=== PATIENT | female | born 1985 | race Caucasian/White ===

== ENCOUNTER → 2019-08-16 | Outpatient (CLI) | payer BC ==
[~2019-08-16] MED LIST: ASPI1TAB31 PO; CITA20TA9 PO; ETHI1TAB5 PO; GALC120S INJ; LEVO50TA5 PO; LORA-439 PO; PNV1TABL43 PO
[2019-08-16 13:47] LABS: BASOPHILS # (AUTO) 0.03 x10^3/uL (0-0.1); BASOPHILS % (AUTO) 1 % (0-1); EOSINOPHILS # (AUTO) 0.08 x10^3/uL (0-0.4); EOSINOPHILS % (AUTO) 1 % (1-7); LYMPHOCYTES # (AUTO) 1.86 x10^3/uL (1-3.4); LYMPHOCYTES % (AUTO) 26 % (22-44); MD NO; MEAN CORPUSCULAR HEMOGLOBIN 27.7 pg (27.0-34.8); MEAN CORPUSCULAR HGB CONC 33.2 g/dL (32.4-35.8); MEAN CORPUSCULAR VOLUME 83.3 fL (80-100); MEAN PLATELET VOLUME 7.5 fL (7.4-10.4); MONOCYTES # (AUTO) 0.33 x10^3/uL (0.2-0.8); MONOCYTES % (AUTO) 5 % (2-9); NEUTROPHILS # (AUTO) 4.96 x10^3/uL (1.8-6.8); NEUTROPHILS % (AUTO) 68 % (42-75); PLATELET COUNT 325 x10^3/uL (130-400); RED BLOOD COUNT 4.99 x10^6/uL (3.82-5.3); RED CELL DISTRIBUTION WIDTH 13.9 % (9.6-15.2)
[2019-08-16 13:54] LABS: ANION GAP 6 mmol/L (5-15); CALCIUM 8.7 mg/dL (8.5-10.1); CHLORIDE 107 mmol/L (98-107); CREATININE 0.89 mg/dL (0.55-1.02)
== END | disposition home or self-care (01) ==
LOC: STAR 12:53
PROVIDERS: ATTEND Obstetrics & Gynecology
DX: Z01.818 Encounter for other preprocedural examination (principal); N94.6 Dysmenorrhea, unspecified
CPT/HCPCS: 36415; 80048; 84703; 85025

== ENCOUNTER 2019-08-23 05:47 | Day surgery (SDC) | payer BC ==
[~2019-08-23] VITALS: Ht 154.9 cm; Wt 88.7 kg
[2019-08-23] MEDS ORDERED: LACTATED RINGERS 1,000 ML IV SCH ×2 (06:03→06:43)
[2019-08-23] MEDS ORDERED: BUPIVACAINE/PF-EPI 0.25% 1:200K ONE (06:31)
[2019-08-23 06:41] VITALS: BP 129/87
[2019-08-23 06:59] LABS: HCG UR SG 1.023 (1.003-1.030)
[2019-08-23] MEDS ORDERED: MIDAZOLAM 1 MG/ML, 2ML ONE (07:23)
[2019-08-23] MEDS ORDERED: PROPOFOL 50 ML ONE ×3 (07:23→08:27)
[2019-08-23] MEDS ORDERED: FENTANYL PF 250 MCG/5ML ONE (07:23)
[2019-08-23] MEDS ORDERED: GABAPENTIN 300 MG CAPSULE PO ONE (07:30)
[2019-08-23] MEDS ORDERED: SCOPOLAMINE PATCH, 1.5MG PATCH.TD72 TD ONE (07:30)
[2019-08-23] MEDS ORDERED: ACETAMINOPHEN 500 MG TABLET PO ONE (07:30)
[2019-08-23] MEDS ORDERED: DIAZEPAM 5 MG TABLET PO ONE (07:30)
[2019-08-23] MEDS ORDERED: SUGAMMADEX 200 MG/2 ML IVPush ONE (07:37)
[2019-08-23] MEDS ORDERED: KETOROLAC 30 MG/1 ML ONE (07:37)
[2019-08-23] MEDS ORDERED: MEPERIDINE/PF 25MG/ML,1ML IVPush PRN (08:00)
[2019-08-23] MEDS ORDERED: FENTANYL PF 100 MCG/2ML IV PRN (08:00)
[2019-08-23] MEDS ORDERED: PROMETHAZINE 25 MG/ML, 1ML IV PRN (08:00)
[2019-08-23] MEDS ORDERED: OXYcodone 5 MG/5 ML ORAL.SOL UDC PO PRN (08:00)
[2019-08-23] MEDS ORDERED: MIDAZOLAM 1 MG/ML, 2ML IV PRN (08:00)
[2019-08-23] MEDS ORDERED: HYDROmorphone 2 MG/ML, 1ML IVPush PRN (08:00)
[2019-08-23] MEDS ORDERED: LIDOCAINE-MPF 2% ,5ML ONE (08:15)
[2019-08-23] MEDS ORDERED: CEFAZOLIN 1,000 MG ONE (08:16)
[2019-08-23] MEDS ORDERED: ONDANSETRON 2MG/ML, 2ML ONE (08:16)
[2019-08-23] MEDS ORDERED: ROCURONIUM 10MG/ML,5ML ONE (08:16)
[2019-08-23] MEDS ORDERED: DEXAMETHASONE 4 MG/ML, 1ML ONE (08:16)
[2019-08-23] MEDS ORDERED: PROPOFOL 10 MG/ML, 20ML ONE (08:16)
[2019-08-23] MEDS ORDERED: OXYcodone 5 MG/5 ML ORAL.SOL UDC ONE (09:13)
[2019-08-23] MEDS ORDERED: MEPERIDINE/PF 25MG/ML,1ML ONE (09:13)
== END 2019-08-23 12:20 | disposition home or self-care (01) ==
LOC: OUT 05:47
PROVIDERS: ATTEND Obstetrics & Gynecology
DX: N94.6 Dysmenorrhea, unspecified (principal); N80.3 Endometriosis of pelvic peritoneum; N73.6 Female pelvic peritoneal adhesions (postinfective); N94.10 Unspecified dyspareunia; G89.29 Other chronic pain; R10.2 Pelvic and perineal pain; G43.909 Migraine, unspecified, not intractable, without status migrainosus; E78.5 Hyperlipidemia, unspecified; F32.9 Major depressive disorder, single episode, unspecified; E66.9 Obesity, unspecified; Z79.3 Long term (current) use of hormonal contraceptives; Z79.890 Hormone replacement therapy; Z79.899 Other long term (current) drug therapy; Z88.5 Allergy status to narcotic agent; Z90.721 Acquired absence of ovaries, unilateral; Z90.49 Acquired absence of other specified parts of digestive tract
CPT/HCPCS: 36415; 58662; 81025; 86850; 86900; J0690; J1100; J1885; J2175; J2250; J2405; J2704; J3010; J7120